=== PATIENT | male | born 1980 | race Caucasian/White ===

== ENCOUNTER 2016-11-24 11:08 | Emergency (ER) | payer BC ==
[2016-11-24 12:28] VITALS: BP 148/91
--- NOTE | 2016-11-24 14:39 | UC ---
Devante Perez Adam, scribed for Olya Ritter DO on 11/24/16 at 1306 . Abdominal Pain Male HPI - HPI Summary HPI Summary: Pt is a 36 year old male presenting with abdominal pain that set on 2 nights ago. Yesterday he states that he felt like he was having indigestion yesterday. Last night and today the pain has been growing worse. It is located in the RLQ and umbilical region of his abdomen. The pain is aggravated by standing, movement, footfall, bumps in the road, palpation, and deep breaths. It is alleviated by lying down. Pt denies any N/V/D, fever, chills, urinary sx, sore throat, ear ache, CP, sob, cough, testicular pain, penile discharge, or MCNAMARA. He denies doing any heavy lifting or sustaining any injuries recently. Negative PMHx. FMHx of DM-1 (brother). Negative tobacco. Alcohol 1x per week (3-4 drinks) . - History of Current Complaint Chief Complaint: UCAbdominalPain Stated Complaint: ABD PAIN Time Seen by Provider: 11/24/16 12:56 Hx Obtained From: Patient Onset/Duration: Gradual Onset, Lasting Days, Still Present, Worse Since - Last night Severity Initially: Mild Severity Currently: Moderate Pain Intensity: 8 Location: Discrete At: RLQ, Other - Periumbilical Radiates: No Character: Aching, Dull, Sharp Aggravating Factor(s):: Movement - and palpation, Deep Breaths Alleviating Factor(s): Position - Recumbent Associated Signs And Symptoms: Positive: Negative. Negative: Fever, Cough, Chest Pain, Back Pain, Urinary Symptoms, Vomiting, Diarrhea - Allergies/Home Medications Allergies/Adverse Reactions: Allergies Allergy/AdvReac Type Severity Reaction Status Date / Time No Known Allergies Allergy Verified 11/24/16 12:28 Home Medications: Home Medications NK [No Home Medications Reported] 11/24/16 [History Confirmed 11/24/16] PMH/Surg Hx/FS Hx/Imm Hx Previously Healthy: Yes Endocrine History Of: Denies: Diabetes, Thyroid Disease Cardiovascular History Of: Denies: Cardiac Disorders, Hypertension Respiratory History Of: Denies: COPD, Asthma GI/ History Of: Denies: Ulcer - Surgical History Surgical History: Yes Surgery Procedure, Year, and Place: TONSILS - Family History Known Family History: Positive: None - Pt denies any FMHx Negative: Cardiac Disease, Hypertension, Diabetes - Social History Occupation: Employed Full-time Lives: With Family - Alcohol Use: Weekly - 1x per week (3-4 drinks) Substance Use Type: None Smoking Status (MU): Never Smoked Tobacco Review of Systems Constitutional: Negative ENT: Negative Respiratory: Negative Cardiovascular: Negative Gastrointestinal: Abdominal Pain Genitourinary: Negative Neurological: Negative All Other Systems Reviewed And Are Negative: Yes Physical Exam Triage Information Reviewed: Yes Appearance: Well-Appearing, Well-Nourished, Pain Distress - mild Vital Signs: Initial Vital Signs Temp 98.2 F 11/24/16 12:23 Pulse 100 11/24/16 12:23 Resp 16 11/24/16 12:23 BP 148/91 11/24/16 12:23 Pulse Ox 99 11/24/16 12:23 Vital Signs Reviewed: Yes Eyes: Positive: Conjunctiva Clear. Negative: Discharge ENT: Positive: Hearing grossly normal. Negative: Muffled/hoarse voice Neck exam: Normal Neck: Positive: Supple Respiratory: Positive: Chest non-tender, Lungs clear, Normal breath sounds, No respiratory distress Cardiovascular: Positive: RRR, No Murmur Abdomen Description: Positive: Soft, Other: - Tenderness. Negative: Distended, Guarding Bowel Sounds: Positive: Present Musculoskeletal Exam: Normal Neurological: Positive: Alert, Muscle Tone Normal Psychological Exam: Normal Psychological: Positive: Age Appropriate Behavior Skin Exam: Normal Skin: Positive: Other - Warm, dry, normal color Abd Pain Male Course/Dx - Course Course Of Treatment: Patient declines offer to ride in ambulance to [facility]. He will drive himself by private car. He has been made aware of the risks of doing so. - Differential Dx/Clinical Impression Differential Diagnosis/HQI/PQRI: Appendicitis, Constipation, Ureteral Stone, Urinary Tract Infection, Other - hernia Provider Diagnoses: abd pain - r/o appy - Physician Notification/Consults Discussed Patient Care With: Dr. Melo at [facility] at 13:17. Patient will go to the ED to r/o appy. Discharge - Discharge Plan Condition: Stable Disposition: [facility]ANS [facility] Discharge Disposition Comment: Patient has elected to drive himself to [facility] by private car. Referrals: No Primary Care Phys,NOPCP [Primary Care Provider] - The documentation as recorded by the Devante magallanes Adam accurately reflects the service I personally performed and the decisions made by me, Olya Ritter DO.
== END 2016-11-24 13:36 | disposition left against medical advice (07) ==
LOC: UCEAST 11:08
DX: R10.31 Right lower quadrant pain (principal); R10.33 Periumbilical pain
CPT/HCPCS: 99202; G0463

== ENCOUNTER 2016-11-24 13:46 | Observation (INO) | payer BC ==
[2016-11-24 16:29] LABS: Hematocrit 46 % (42-52); Hemoglobin 15.3 g/dl (14.0-18.0); Mean Corpuscular HGB Conc 33 g/dl (31-36); Mean Corpuscular Hemoglobin 29 pg (27-31); Mean Corpuscular Volume 89 fL (80-94); Mean Platelet Volume 9 um3 (7.4-10.4); Red Blood Count 5.21 10^6/ul (4.0-5.4); Red Cell Distribution Width 13 % (10.5-15); White Blood Count 15.6 10^3/ul (3.5-10.8)
[2016-11-24 16:45] LABS: Albumin 4.3 g/dL (3.2-5.2); C Reactive Protein 22.36 mg/L (< 5.00); Calcium 9.4 mg/dL (8.6-10.3); EGFR African American 125.8 (>60); EGFR Non-African American 97.8 (>60); Globulin 3.4 g/dL (2-4); Potassium 3.8 mmol/L (3.5-5.0); Total Bilirubin 0.7 mg/dL (0.2-1.0); Total Protein 7.7 g/dL (6.4-8.9)
[2016-11-24] MEDS ORDERED: Iohexol 300* (CONTRAST) 10 ML SDV IV ONE (16:49)
--- NOTE | 2016-11-24 16:56 | RAD ---
Indication: RIGHT upper quadrant pain. Question cholecystitis. Comparison: None. Technique: RIGHT upper quadrant ultrasound. Report: Appropriate direction flow documented in the portal and hepatic veins. 15.8 cm cephalocaudal liver is echogenic. No focal hepatic lesions or intrahepatic biliary dilatation. Adequately distended gallbladder with normal 2.9 mm wall is without pathologic finding. Negative for sonographic Almaguer's sign. The common bile duct and pancreas could not be visualized. Negative for ascites. Unremarkable 10.1 x 6.7 x 6.3 cm RIGHT kidney. IMPRESSION: 1. Fatty infiltration of the liver. 2. No evidence for gallbladder pathology. While there is no intrahepatic biliary dilatation assessment is limited due to nonvisualization of the common bile duct with acoustic window compromised due to body habitus and echogenic liver. On the same basis the pancreas could not be visualized. 3. Negative for RIGHT hydronephrosis.
[2016-11-24] MEDS: NS 0.9% 1000 ML* 3,000 ML IV ONE ×2 (17:32→18:29)
[2016-11-24 17:39] LABS: Urine Bilirubin Negative (Negative); Urine Glucose Negative (Negative); Urine Nitrite Negative (Negative)
[2016-11-24] MEDS ORDERED: Ondansetron INJ* 2 MG/ML VIAL IV ONE (18:18)
[2016-11-24] MEDS ORDERED: HYDROmorphone* 1 MG/ML 1 ML SYR IV SLOW PU ONE (18:18)
--- NOTE | 2016-11-24 18:30 | RAD ---
INDICATION: RIGHT lower quadrant pain since Friday night with progression. COMPARISON: RIGHT upper quadrant ultrasound of the same date. TECHNIQUE: Multidetector CT images were obtained from the lung bases to the ischial tuberosities with 121 mL Omnipaque 300 IV and oral contrast. Multiplanar reformation. REPORT: Unremarkable visualized inferior thorax. Unremarkable liver, gallbladder, pancreas, spleen. Unremarkable upper GI and small bowel. Enlarged retro- and infracecal appendix measuring up to 8 mm diameter with mural thickening, mural enhancement, and moderately severe periappendiceal inflammatory stranding and small volume of RIGHT lower quadrant nonloculated fluid. No visualized appendicolith. Probable mild associated mural thickening of the cecum. Negative for periappendiceal abscess or free intraperitoneal air. Unremarkable largely decompressed colon. Negative for significant hernias. Normal adrenal glands. Unremarkable kidneys with symmetric nephrograms and pyelograms. Unremarkable ureters and partially distended urinary bladder. Symmetric seminal vesicles. Small reactive lymph nodes at the RIGHT lower quadrant mesentery measuring up to 0.5 cm diameter. Negative for lymphadenopathy by short axis size criteria. Unremarkable dominant retroperitoneal vasculature. Physiologic distention of the IVC. Negative for suspicious osseous lesions. Morfin images saved on the [facility] PACS. IMPRESSION: Acute appendicitis without periappendiceal abscess or resulting bowel obstruction.
[2016-11-24] MEDS ORDERED: ceFOXitin 2 GM IVPREMIX* 2 GM/50 ML BAG IVPB ONE (18:57)
[2016-11-24] MEDS ORDERED: NS 0.9% 1000 ML* 1,000 ML IV SCH (19:00)
[2016-11-24] MEDS ORDERED: Bupivacaine 0.5% W/EPI SDV* 30 ML VIAL ONE (20:47)
--- NOTE | 2016-11-24 20:58 | ED ---
I, Oh,Soohspencer, scribed for Stef Garrido MD on 11/24/16 at 1550 . Abdominal Pain/Male - HPI Summary HPI Summary: THis 36 y/o male presents to ED for gradual onset of right sided abd pain since 2 days ago and worse since this morning. Pain does radiate to back. Negative fever, chills, n/v, dysuria. Pt reports decreased appetite, and had not eated today except a couple of glasses of water. Lying down makes the pain worse. Ambulation and bumpy car rides make the abd pain worse. Negative PSHx. Plan of care involving fluid resuscitation, imaging studies, and bloodwork is discussed with pt. - History of Current Complaint Chief Complaint: EDAbdPain Stated Complaint: ABD PAIN COMING FROM [facility] Time Seen by Provider: 11/24/16 15:38 Hx Obtained From: Patient, Medical Records Onset/Duration: Still Present Timing: Constant Pain Intensity: 8 Pain Scale Used: 0-10 Numeric - Allergies/Home Medications Allergies/Adverse Reactions: Allergies Allergy/AdvReac Type Severity Reaction Status Date / Time No Known Allergies Allergy Verified 11/24/16 12:28 PMH/Surg Hx/FS Hx/Imm Hx Endocrine/Hematology History: Denies: Hx Diabetes, Hx Thyroid Disease Cardiovascular History: Denies: Hx Hypertension Respiratory History: Denies: Hx Asthma, Hx Chronic Obstructive Pulmonary Disease (COPD) GI History: Denies: Hx Ulcer - Surgical History Surgery Procedure, Year, and Place: TONSILS Infectious Disease History: No Infectious Disease History: Denies: Hx Clostridium Difficile, Hx Hepatitis, Hx Human Immunodeficiency Virus (HIV), Hx of Known/Suspected MRSA, Hx Shingles, Hx Tuberculosis, Hx Known/ Suspected VRE, Hx Known/Suspected VRSA, History Other Infectious Disease, Traveled Outside the [place] in Last 30 Days - Family History Known Family History: Negative: Cardiac Disease, Hypertension, Diabetes - Social History Alcohol Use: Occasionally Substance Use Type: Reports: None Smoking Status (MU): Never Smoked Tobacco Review of Systems Negative: Fever, Chills Positive: Abdominal Pain, Other - decreased appetite. Negative: Vomiting, Nausea Negative: dysuria All Other Systems Reviewed And Are Negative: Yes Physical Exam - Summary Physical Exam Summary: The patient is well-nourished in no acute distress and in no acute pain. The skin is warm and dry and skin color reflects adequate perfusion. Good skin turgor. HEENT: The head is normocephalic and atraumatic. The pupils are equal and reactive. The conjunctivae are clear and without drainage. Nares are patent and without drainage. Mouth reveals mildly dry mucous membranes and the throat is without erythema and exudate. The external ears are intact. The ear canals are patent and without drainage. The tympanic membranes are intact. Neck is supple with full range of motion and non-tender. There are no carotid bruits. There is no neck vein distension. Respiratory: Chest is non-tender. Lungs are clear to auscultation and breath sounds are symmetrical and equal. Cardiovascular: Heart rate is tachycardic. There is no murmur or rub auscultated. There is no peripheral edema and pulses are symmetrical and equal. Abdomen: Mild percussive tenderness at right mid quadrant. Negative rebound tenderness. There are normal bowel sounds heard in all four quadrants and there is no organomegaly palpated. Negative CVA tenderness, bilat. Negative heel percussive tenderness. No pain with flexion of his RLE. Musculoskeletal: There is no back pain noted. Extremities are non-tender with full range of motion. There is good capillary refill. There is no peripheral edema or calf tenderness elicited. Neurological: Patient is alert and oriented to person, place and time. The patient has symmetrical motor strength in all four extremities. Cranial nerves are grossly intact. Deep tendon reflexes are symmetrical and equal in all four extremities. Psychiatric: The patient has an appropriate affect and does not exhibit any anxiety or depression. Triage Information Reviewed: Yes Vital Signs On Initial Exam: Initial Vitals Temp Pulse Resp BP Pulse Ox 97.9 F 111 16 138/88 100 11/24/16 14:03 11/24/16 14:03 11/24/16 14:03 11/24/16 14:03 11/24/16 14:03 Vital Signs Reviewed: Yes Diagnostics - Vital Signs Vital Signs Temp Pulse Resp BP Pulse Ox 11/24/16 14:05 97.8 F 110 20 138/88 99 11/24/16 14:03 97.9 F 111 16 138/88 100 - Laboratory Lab Results: Lab Results 11/24/16 11/24/16 11/24/16 Range/Units 16:15 16:15 16:15 WBC 15.6 H (3.5-10.8) 10^3/ul RBC 5.21 (4.0-5.4) 10^6/ul Hgb 15.3 (14.0-18.0) g/dl Hct 46 (42-52) % MCV 89 (80-94) fL MCH 29 (27-31) pg MCHC 33 (31-36) g/dl RDW 13 (10.5-15) % Plt Count 310 (150-450) 10^3/ul MPV 9 (7.4-10.4) um3 Neut % (Auto) 79.0 (38-83) % Lymph % (Auto) 12.4 L (25-47) % Troup % (Auto) 7.2 (1-9) % Eos % (Auto) 0.9 (0-6) % Baso % (Auto) 0.5 (0-2) % Absolute Neuts (auto) 12.3 H (1.5-7.7) 10^3/ul Absolute Lymphs (auto) 1.9 (1.0-4.8) 10^3/ul Absolute Monos (auto) 1.1 H (0-0.8) 10^3/ul Absolute Eos (auto) 0.1 (0-0.6) 10^3/ul Absolute Basos (auto) 0.1 (0-0.2) 10^3/ul Absolute Nucleated RBC 0.02 10^3/ul Nucleated RBC % 0.1 Sodium 135 (133-145) mmol/L Potassium 3.8 (3.5-5.0) mmol/L Chloride 100 L (101-111) mmol/L Carbon Dioxide 27 (22-32) mmol/L Anion Gap 8 (2-11) mmol/L BUN 8 (6-24) mg/dL Creatinine 0.89 (0.67-1.17) mg/dL Est GFR ( Amer) 125.8 (>60) Est GFR (Non-Af Amer) 97.8 (>60) BUN/Creatinine Ratio 9.0 (8-20) Glucose 104 H (70-100) mg/dL Lactic Acid 1.1 (0.5-2.0) mmol/L Calcium 9.4 (8.6-10.3) mg/dL Total Bilirubin 0.70 (0.2-1.0) mg/dL AST 15 (13-39) U/L ALT 25 (7-52) U/L Alkaline Phosphatase 62 (34-104) U/L C-Reactive Protein 22.36 H (< 5.00) mg/L Total Protein 7.7 (6.4-8.9) g/dL Albumin 4.3 (3.2-5.2) g/dL Globulin 3.4 (2-4) g/dL Albumin/Globulin Ratio 1.3 (1-3) Amylase 46 (29-103) U/L Lipase 13 (11.0-82.0) U/L Urine Color Urine Appearance Urine pH (5-9) Ur Specific [place] (1.010-1.030) Urine Protein (Negative) Urine Ketones (Negative) Urine Blood (Negative) Urine Nitrate (Negative) Urine Bilirubin (Negative) Urine Urobilinogen (Negative) Ur Leukocyte Esterase (Negative) Urine Glucose (Negative) 11/24/16 Range/Units 17:30 WBC (3.5-10.8) 10^3/ul RBC (4.0-5.4) 10^6/ul Hgb (14.0-18.0) g/dl Hct (42-52) % MCV (80-94) fL MCH (27-31) pg MCHC (31-36) g/dl RDW (10.5-15) % Plt Count (150-450) 10^3/ul MPV (7.4-10.4) um3 Neut % (Auto) (38-83) % Lymph % (Auto) (25-47) % Troup % (Auto) (1-9) % Eos % (Auto) (0-6) % Baso % (Auto) (0-2) % Absolute Neuts (auto) (1.5-7.7) 10^3/ul Absolute Lymphs (auto) (1.0-4.8) 10^3/ul Absolute Monos (auto) (0-0.8) 10^3/ul Absolute Eos (auto) (0-0.6) 10^3/ul Absolute Basos (auto) (0-0.2) 10^3/ul Absolute Nucleated RBC 10^3/ul Nucleated RBC % Sodium (133-145) mmol/L Potassium (3.5-5.0) mmol/L Chloride (101-111) mmol/L Carbon Dioxide (22-32) mmol/L Anion Gap (2-11) mmol/L BUN (6-24) mg/dL Creatinine (0.67-1.17) mg/dL Est GFR ( Amer) (>60) Est GFR (Non-Af Amer) (>60) BUN/Creatinine Ratio (8-20) Glucose (70-100) mg/dL Lactic Acid (0.5-2.0) mmol/L Calcium (8.6-10.3) mg/dL Total Bilirubin (0.2-1.0) mg/dL AST (13-39) U/L ALT (7-52) U/L Alkaline Phosphatase (34-104) U/L C-Reactive Protein (< 5.00) mg/L Total Protein (6.4-8.9) g/dL Albumin (3.2-5.2) g/dL Globulin (2-4) g/dL Albumin/Globulin Ratio (1-3) Amylase (29-103) U/L Lipase (11.0-82.0) U/L Urine Color Yellow Urine Appearance Clear Urine pH 5.0 (5-9) Ur Specific [place] 1.017 (1.010-1.030) Urine Protein Negative (Negative) Urine Ketones Trace H (Negative) Urine Blood Negative (Negative) Urine Nitrate Negative (Negative) Urine Bilirubin Negative (Negative) Urine Urobilinogen Negative (Negative) Ur Leukocyte Esterase Negative (Negative) Urine Glucose Negative (Negative) Result Diagrams: 11/24/16 16:15 11/24/16 16:15 Lab Statement: Any lab studies that have been ordered have been reviewed, and results considered in the medical decision making process. - CT Ab/P CT Interpretation: Positive (See Comments) - Acute appendicitis without periappendiceal abscess or resulting bowel obstruction. CT Interpretation Completed By: Radiologist - Additional Comments Diagnostic Additional Comments: US Gallbladder -- 1. Fatty infiltration of the liver. 2. No evidence for gallbladder pathology. While there is no intrahepatic biliary dilatation assessment is limited due to nonvisualization of the common bile duct with acoustic window compromised due to body habitus and echogenic liver. On the same basis the pancreas could not be visualized. 3. Negative for RIGHT hydronephrosis. Re-Evaluation - Re-Evaluation First Eval Re-Evaluation Time: 18:51 Comment: Dr. Garrido in room to update pt on CT imaging results and blood work. Plan of care involving surgery consult and admission is discussed, and pt is agreeable. Hard copies of the imaging results and blood works are shared. Abdominal Pain Fem Course/Dx - Course Assessment/Plan: This 36 y/o male presents to ED from [facility] for acute RLQ pain since 2 days ago. Pain is worse since this morning. CT Ab/P indicates acute appendicitis without abscess or obstruction. WBC of 15.6 and CRP of 22.36 are noted in bloodwork. Dr. Holland is consulted, and will admit patient to OR. Ceftrioxone 2 gm IV given as transition order. - Diagnoses Differential Diagnosis/HQI/PQRI: Appendicitis, Diverticulitis, Gall Bladder Disease Provider Diagnoses: Acute appendicitis - Provider Notifications Discussed Care Of Patient With: Dr. Holland (Surgery) at 1853 PM. Discharge - Discharge Plan Condition: Stable Disposition: ADMITTED TO [facility] documentation as recorded by the Ivan magallanes Soohyun accurately reflects the service I personally performed and the decisions made by , Stef Garrido MD.
[2016-11-24] MEDS ORDERED: Midazolam* 1 MG/ML 5 ML VIAL (5 MG) ONE (21:10)
[2016-11-24] MEDS ORDERED: ceFOXitin(*) 1 GM VIAL ONE (21:12)
[2016-11-24] MEDS ORDERED: Propofol* 10 MG/ML 20 ML BTL IV PUSH ONE (21:16)
[2016-11-24] MEDS ORDERED: Succinylcholine* 20 MG/ML 10 ML VIAL ONE (21:16)
[2016-11-24] MEDS ORDERED: fentaNYL* 50 MCG/ML 2 ML VIAL (100 MCG VIAL) ONE ×2 (21:18→21:26)
[2016-11-24] MEDS ORDERED: Atracurium* 10 MG/ML 10 ML VIAL ONE (21:18)
[2016-11-24] MEDS ORDERED: Ondansetron INJ* 2 MG/ML VIAL IV PRN ×2 (21:48→22:34)
[2016-11-24] MEDS ORDERED: fentaNYL* 50 MCG/ML 2 ML VIAL (100 MCG VIAL) IV PRN (21:48)
[2016-11-24] MEDS ORDERED: HYDROmorphone* 1 MG/ML 1 ML SYR IV PRN (21:48)
[2016-11-24] MEDS ORDERED: DiMENhydriNATE IV* 50 MG/ML VIAL IV PUSH PRN (21:48)
[2016-11-24] MEDS ORDERED: Ondansetron INJ* 2 MG/ML VIAL ONE (21:57)
[2016-11-24] MEDS ORDERED: Neostigmine Methylsulfate* 2 MG/2 ML SYRINGE ONE (22:03)
[2016-11-24] MEDS ORDERED: Glycopyrrolate IV* 0.2 MG/ML 1 ML VIAL ONE (22:03)
[2016-11-24] MEDS ORDERED: Ketorolac INJ* 30 MG/ML 1 ML VIAL ONE (22:18)
[2016-11-24] MEDS ORDERED: Levalbuterol 1.25MG/0.5ML NEB ONE (22:25)
[2016-11-24] MEDS: Ketorolac INJ* 30 MG/ML 1 ML VIAL IV PUSH PRN (22:30)
[2016-11-24] MEDS ORDERED: HYDROmorphone* 1 MG/ML 1 ML SYR IV SLOW PU PRN (22:32)
[2016-11-24] MEDS ORDERED: oxyCODONE/Acetamin 5/325 MG* TAB PO PRN ×2 (22:32)
[2016-11-24] MEDS ORDERED: diPHENhydraMINE IV* 25 MG in NS 0.9% 50 ML* 50 ML IVPB PRN (22:34)
--- NOTE | 2016-11-24 22:43 | SURGPN ---
Brief Operative Note - Surgery Procedures: PRE/POSTOP DX: ACUTE APPENDICITIS PROC: LAP APPENDECTOMY SURG: MECENAS ASSIST: NONE ANES: GET/SANITO EBL: <50 ML IVF: 1.9L LR SPEC: APPENDIX DRAIN: NONE COMPL: NONE COND: STABLE TO RR
[2016-11-24] MEDS ORDERED: Acetaminophen TAB* 325 MG PO PRN (22:47)
[2016-11-24] MEDS ORDERED: Acetaminophen TAB* 325 MG ONE (22:52)
[2016-11-24] MEDS ORDERED: Piperac/Tazob 3.375 gm in NS* 3.375 GM/100 ML BAG IVPB ONE (23:00)
[2016-11-24] MEDS ORDERED: ceFOXitin 2 GM IVPREMIX* 2 GM/50 ML BAG IVPB SCH (23:00)
--- NOTE | 2016-11-25 01:09 | OP ---
DATE OF OPERATION: 11/24/16 - ROOM #ICU-07 DATE OF : 84 SURGEON: Elvin Holland MD ANESTHESIOLOGIST: Dr. Nunn. ANESTHESIA: General endotracheal. PRE-OP DIAGNOSIS: Acute appendicitis. POST-OP DIAGNOSIS: Acute appendicitis. OPERATIVE PROCEDURE: Laparoscopic appendectomy. ESTIMATED BLOOD LOSS: Minimal. IV FLUIDS: 1.9 L of crystalloid. SPECIMEN: Appendix. DRAINS: None. COMPLICATIONS: None. COUNTS: Instrument, needle, and sponge counts correct. DESCRIPTION OF PROCEDURE: The patient was brought to the operating room and placed on table supine. Sequential compression devices were placed on both lower extremities. General anesthesia was administered. The abdomen was prepped and draped in the usual sterile fashion. Time-out was performed. Local anesthetic was infiltrated into the skin and soft tissue of each incision prior to making the incision. Entry to the abdomen was through a vertical transumbilical incision using an open technique. After accessing the peritoneal cavity, a 12 mm trocar was placed and carbon dioxide was insufflated to a pressure of 15 mmHg. Under direct visualization, additional 5 mm trocar was placed in the suprapubic midline in left lower quadrant. Laparoscope was introduced. There was appendix identified in the right mid abdomen and with fibrinous exudate overlying the tip of it laterally. There were some peritoneal adhesions that were lysed and the base of the appendix was identified. The appendix was elevated. A window was created at the mesentery of the appendix at the base. The appendix was divided from the cecum with Endo KELY stapler with michelle cartridge. Sequential division of the mesentery of the appendix was performed with the endo KELY stapler with starks cartridges. At one point, a small pocket of pus was entered and spillage controlled with suction. Once the appendix was completely freed, it was placed in endoscopic retrieval bag and then it was retrieved and submitted to pathology. Copious lavage was performed with warm saline until clear. This was performed in the site of the dissection as well as in the pelvis and above the liver. Subsequently, the ports were removed under direct visualization. Carbon dioxide was released and the umbilical wound was closed with 0 Polysorb in a figure-of- eight fashion to approximate the fascia. Skin incisions were closed with 4-0 Monocryl in a subcuticular fashion. Steri-Strips were applied. The patient was extubated and transferred to recovery room in stable condition. [id number]/[facility] #: [id number] DEVON
[2016-11-25] MEDS: Piperac/Tazob 3.375 gm in NS* 3.375 GM/100 ML BAG IVPB SCH ×2 (04:40→10:43)
--- NOTE | 2016-11-25 07:32 | RAD ---
INDICATION: Low oxygen saturation. COMPARISON: There are no prior studies available for comparison. TECHNIQUE: A portable view of the chest was obtained. FINDINGS: Cardiac and mediastinal contours appear to be within normal limits. The lungs are underinflated. There is mild prominence of the interstitial markings. No focal infiltrate or pleural effusion is seen. IMPRESSION: EXPIRATORY EXAM MILD PROMINENCE OF INTERSTITIAL MARKINGS POSSIBLY DUE TO UNDERINFLATION OF THE LUNGS LESS LIKELY INTERSTITIAL INFILTRATES.
[2016-11-25] MEDS: Ketorolac INJ* 30 MG/ML 1 ML VIAL IV PUSH PRN ×2 (08:27→14:19)
--- NOTE | 2016-11-25 12:04 | SURGPN ---
Subjective - Introduction -: Doing well, tolerating liquid diet, feels hungry. Denies pain, N/V, fever or chills. - Medications -: Active Medications Generic Name Dose Route Start Last Admin Trade Name Freq PRN Reason Stop Dose Admin Acetaminophen 650 mg 11/24/16 22:47 11/24/16 22:54 Tylenol Tab* PO 650 mg Q4H PRN Administration FEVER Hydromorphone HCl 1 mg 11/24/16 22:32 11/25/16 04:23 Dilaudid Iv* IV SLOW PU 1 mg Q4H PRN Administration PAIN Diphenhydramine HCl 25 mg/ 50.5 mls @ 101 mls/hr 11/24/16 22:34 Sodium Chloride IVPB Q6H PRN ITCHING Lactated Ringer's 1,000 mls @ 150 mls/hr 11/24/16 23:00 11/25/16 10:43 Lactated Ringers 1000 Ml Bag* IV 150 mls/hr PER RATE JARED Administration Piperacillin Sod/Tazobactam Sod 3.375 gm in 100 mls @ 200 mls/hr 11/25/16 05: 00 11/25/16 10:43 Zosyn 3.375 Gm In Ns Premix* IVPB 200 mls/hr Q6H JARED Administration Ketorolac Tromethamine 30 mg 11/24/16 22:32 11/25/16 08:27 Toradol Inj* IV PUSH 30 mg Q6H PRN Administration PAIN Ondansetron HCl 4 mg 11/24/16 22:34 Zofran Inj* IV Q6H PRN NAUSEA Oxycodone/Acetaminophen 1 tab 11/24/16 22:32 11/25/16 10:52 Percocet 5/325 Tab* PO 1 tab Q4H PRN Administration PAIN Oxycodone/Acetaminophen 2 tab 11/24/16 22:32 11/25/16 04:47 Percocet 5/325 Tab* PO 2 tab Q4H PRN Administration PAIN Objective - Objective -: Awake and alert, walking down the [place]azar. - Intake and Output -: Intake & Output 11/23/16 11/24/16 11/25/16 11/26/16 06:59 06:59 06:59 06:59 Intake Total 4320 520 Output Total 1425 700 Balance 2895 -180 Weight 217 lb 6.012 oz Intake: IV Fluids 3630 LR 680 lr 1900 Oral 690 520 Output: Urine 1425 700 Surgical Physical Exam - Comments -: VSS, afebrile. Lungs CTA bilat. Heart RRR, no murmurs. Abdomen soft, non-distended. Mild incisional tenderness. Assessment and Plan - Assessment -: A 36 y/o male, POD#1, s/p laparoscopic appendectomy, doing well. - Plan Additional Comments: Regular diet. D/C IVF If tolerates diet, d/c to home later this afternoon.
[2016-11-25 14:00] VITALS: BP 120/74
--- NOTE | 2016-11-26 04:21 | DS ---
DISCHARGE SUMMARY: DATE OF ADMISSION: 11/24/16 DATE OF DISCHARGE: 11/25/16 ADMITTING PHYSICIAN: Elvin Holland MD (DICTATED BY CASA MUNSON) CONSULTATIONS: None. ADMISSION DIAGNOSES: 1. Abdominal pain. 2. Acute appendicitis. DISCHARGE DIAGNOSES: 1. Abdominal pain. 2. Acute appendicitis. PROCEDURE: Laparoscopic appendectomy on 11/24/16. HISTORY OF PRESENT ILLNESS: Mr. Senior is a pleasant 37-year-old gentleman who presented to the emergency room yesterday afternoon with complaints of worsening right-sided abdominal pain for the past 2 days. The patient noted that the pain has been on and off for the last 2 days, has gotten progressive worse and more focused on the right lower quadrant. He describes it as sharp, stabbing episodes of pain, rated 10/10, localized to the right side with no other associated symptoms. He denied any nausea, vomiting, fever, chills or any urinary symptoms. He also notes decreased appetite since the pain has gotten worse. He presented to the emergency room and was noted to have leukocytosis on CBC as well as findings consistent with acute appendicitis on CT scan for which the patient was consulted to be seen by Surgery and was taken to the operating room later that day for a laparoscopic appendectomy. HOSPITAL COURSE: The patient was taken to the operating room on the afternoon hours of 11/24/16 in anticipation for laparoscopic appendectomy. His surgery went quite smoothly with no immediate complications. After recovery, the patient was noted to have decreased oxygen saturation despite being on 10 L of oxygen via nasal cannula. He had a chest x-ray at recovery and that failed to reveal any evidence of pulmonary edema or atelectasis. For this reason, the patient was kept overnight at the intensive care unit to monitor his oxygen saturation. During the night, he did extremely well with no evidence of desaturation, chest pain, shortness of breath, or any other respiratory symptoms. His pain was well tolerated and using Toradol as needed. He complained of slight nausea postoperatively that was well controlled using Zofran. On the morning of the discharge, the patient was started on clear liquid diet that he tolerated well, that was quickly advanced to regular diet during lunch. The patient tolerated regular diet and he was ambulatory out of bed. His saturation remained at 100% on room air. He was ready to be discharged home and will be seen in the office in 2 weeks for a followup. DISCHARGE MEDICATIONS: Include Percocet as prescribed for pain. PROBLEM LIST: 1. Abdominal pain. 2. Acute appendicitis, status post laparoscopic appendectomy on 11/24/16. [facility] COBB [id number]/[facility] [place]: [id number] MTDMachelle
== END 2016-11-25 14:46 | disposition home or self-care (01) ==
LOC: ED 13:46 → INTOOBSV 18:54 → SSU 18:54 → ICU 11-25 00:28
PROVIDERS: ADMIT Surgery; ATTEND Surgery
PROC: 0DTJ4ZZ Resection of Appendix, Percutaneous Endoscopic Approach (ICD-10-PCS; principal; 2016-11-24 20:49)
DX: K35.80 Unspecified acute appendicitis (principal); K76.0 Fatty (change of) liver, not elsewhere classified
CPT/HCPCS: 36415; 71010; 74177; 76705; 80053; 81003; 82150; 83605; 83690; 85025; 86140; 87641; 88304; 96374; 96375; 96376; 99202; 99283; A9270-GY; C1776; G0378; G0463; J0330; J0694; J1170; J1885; J2250; J2405; J2543; J2704; J3010; Q9967